=== PATIENT | male | born 1955 | race Caucasian/White ===

== ENCOUNTER → 2017-04-01 11:03 | Outpatient (CLI) | payer BC | END | disposition home or self-care (01) | LOC: D.MRI 11:03 | DX: M54.5 Low back pain (principal) ==

== ENCOUNTER → 2018-02-13 07:57 | Outpatient (CLI) | payer BC | END | disposition home or self-care (01) | LOC: D.MRI 07:57 | DX: M54.12 Radiculopathy, cervical region (principal) ==